=== PATIENT | male | born 1950 ===

== ENCOUNTER 2018-04-08 08:53 | Outpatient (CLI) | payer MEDICARE | END 2018-04-08 08:54 | disposition home or self-care (01) | LOC: C.LAB 08:53 | DX: E78.00 Pure hypercholesterolemia, unspecified (principal); I10 Essential (primary) hypertension; K40.90 Unilateral inguinal hernia, without obstruction or gangrene, not specified as recurrent; M21.612 Bunion of left foot ==

== ENCOUNTER 2018-07-05 08:11 | Outpatient (CLI) | payer MEDICARE | END 2018-07-05 08:12 | disposition home or self-care (01) | LOC: C.LAB 08:11 → C.PAT 08:12 ==

== ENCOUNTER 2018-07-12 05:57 | Day surgery (SDC) | payer MEDICARE ==
[2018-07-05 08:20] VITALS: BMI 23.6
[2018-07-12] MEDS ORDERED: Bupivacaine Liposomal Inj 20 ml INFIL ONE (07:31)
[2018-07-12] MEDS ORDERED: Propofol 10 mg/ml Inj (20 ML) ONE (07:40)
[2018-07-12] MEDS ORDERED: Rocuronium 10 mg/ml (5 ml) ONE (07:40)
[2018-07-12] MEDS ORDERED: Midazolam 2 MG/2 ML VIAL ONE (07:40)
[2018-07-12] MEDS ORDERED: Lidocaine/Epinephrine 1% 1:100000 10 ML IJ ONE (07:42)
[2018-07-12] MEDS ORDERED: Bupivacaine 0.25% 20 ML INJ IJ ONE (07:42)
[2018-07-12] MEDS ORDERED: Sodium Chloride 0.9% 40 ML IV ONE (07:42)
[2018-07-12] MEDS: ceFAZolin 1 gm in NS 2 GM/200 ML BAG IVPB ONE ×2 (08:20→08:34)
[2018-07-12] MEDS ORDERED: ePHEDrine 50 mg/ml Inj ONE (09:24)
[2018-07-12] MEDS ORDERED: Neostigmine 1:1000 (1 mg/ml) Inj ONE (09:27)
[2018-07-12] MEDS ORDERED: Morphine 4 MG/ML VIAL ONE (10:02)
--- NOTE | 2018-07-12 10:28 | PCM.SURG1 ---
Surgeon's Initial Post Op Note - Surgeon's Notes Surgeon: Isabella Macdonald MD Scrap Piler: TONA San Type of Anesthesia: General Endo Pre-Operative Diagnosis: Right Inguinal Hernia. Right Lower abdominal Pain Operative Findings: Right Indirect inguinal Hernia. Right Lipoma of spermatic cord. Right femoral hernia containing fat. Thickening Appendicx with possible Appendicitis Post-Operative Diagnosis: Right Indirect inguinal Hernia. Right Lipoma of spermatic cord. Right femoral hernia containing fat. Thickenned Appendix with possible Appendicitis Operation Performed: Robotic Right Indirect inguinal Hernia repair with mesh. Robotic Excision of Right Lipoma of spermatic cord. Robotic Right femoral hernia with mesh. Robotic Appendectomy. Robotic TAP block B/L placement Specimen/Specimens Removed: Right Lipoma of spermatic cord. Right femoral hernia content fat. Thickened Appendix Estimated Blood Loss: EBL {In ML}: 10 Blood Products Given: N/A Drains Used: No Drains Post-Op Condition: Good Date of Surgery/Procedure: 07/12/18 Time of Surgery/Procedure: 10:37
[2018-07-12] MEDS: HYDROmorphone 0.5 mg/0.5 ml ISec IVP PRN ×5 (11:11→11:42)
[2018-07-12 12:53] VITALS: BP 128/78; PULSE 83; RESP 18; TEMP 97; O2SAT 100
--- NOTE | 2018-07-12 17:40 | OP ---
PROCEDURE DATE: 07/12/2018 PREOPERATIVE DIAGNOSES: 1. Right inguinal hernia. 2. Right lower abdominal pain. POSTOPERATIVE DIAGNOSES: 1. Right indirect inguinal hernia. 2. Right femoral hernia. 3. Right lipoma of the spermatic cord. 4. Thickened appendix as a part of right inguinal canal with possible appendicitis. PROCEDURE DONE: 1. Robotic right inguinal hernia repair with mesh. 2. Robotic right femoral hernia repair with mesh. 3. Robotic excision of the lipoma of the spermatic cord. 4. Robotic appendectomy. 5. Robotic TAP block bilateral placement. SURGEON: Kumar Macdonald MD STOCK REPAIRER: KENA San TYPE OF ANESTHESIA: General endotracheal tube. INTRAOPERATIVE FINDINGS: The patient had right indirect inguinal hernia containing long, thickened appendix and the patient had a possible appendicitis. The patient also had a large lipoma of the right spermatic cord and the patient also had a right femoral hernia. ESTIMATED BLOOD LOSS: Around 10 mL. DRAINS: None. PATHOLOGY: 1. Lipoma of the right spermatic cord was sent for the pathology. 2. Right femoral hernial content was sent for the pathology. 3. Thickened appendix was sent for the pathology. COMPLICATIONS: None. DESCRIPTION OF PROCEDURE: On intraoperative steps, this is a 67-year-old male who was diagnosed with right inguinal hernia with right lower abdominal pain and the patient was consented for the robotic right inguinal hernia repair with the mesh with TAP block. The patient was brought to the OR, placed supine on the operating table. After induction of the anesthesia, the abdomen was prepped and draped in the usual sterile fashion. The Visiport technique was used to enter the peritoneal cavity due to the previous umbilical hernia repair and another 3-mm port was placed in the upper abdomen. Robot was brought in. Camera arm as well as arm 1 and arm 2 were docked and the peritoneum was incised from the midline up to the right ASIS and the dissection was carried down into the inguinal canal and the patient had appendix that was the part of the inguinal canal and appendix appeared to be extremely thickened and edematous as well as long in size and appendix was reduced back into the peritoneal cavity and after that the dissection was carried down medially up to the space of Retzius laterally. The lateral peritoneal reflection was dissected free from the lateral abdominal wall and spermatic cord and vas deferens and inferior dissection was done up to the pelvic brim and during the medial dissection, the patient was found to have another right femoral hernia containing the preperitoneal fat, large amount of fat, and all fat was reduced back into the peritoneal cavity. Proper hemostasis was achieved and after complete reduction of the right femoral hernial content into the peritoneal cavity, the right anatomical mesh was placed and the mesh was covering the right femoral hernial defect as well as the right inguinal hernial defect and after proper mesh placement, the peritoneum was sutured with 0 Vicryl as well as 3-0 PDS suture and after that the appendix was re-examined and half of the appendix was thickened and edematous and now the mesoappendix was resected and the appendicular artery was clipped and divided and the base of the appendix was divided with a AIXA and appendix was taken in EndoCatch bag, taken out through the umbilical port and sent off the table for the pathology. The lipoma of the spermatic cord as well as the femoral hernia content was also sent off for pathology. All the instruments were taken out and now the bilateral TAP block was given. Then, 30:30 mL of the EXPAREL with saline was injected into the transverse abdominis muscle plain area and after proper TAP block, all the instruments were taken out and all the port was taken out under vision. Robot was undocked and the umbilical port site was closed in 2 layers, the fascia with 0 Vicryl interrupted suture, skin with the 4-0 Monocryl and dry sterile dressing was applied. The patient tolerated the procedure well. Count of instrument and gauze were correct. There were no apparent complications. Kumar Macdonald MD
== END 2018-07-12 18:32 | disposition home or self-care (01) ==
LOC: C.SDS 05:57
PROVIDERS: ATTEND Surgery Surgical Critical Care
DX: K40.90 Unilateral inguinal hernia, without obstruction or gangrene, not specified as recurrent (principal); K41.90 Unilateral femoral hernia, without obstruction or gangrene, not specified as recurrent; D17.6 Benign lipomatous neoplasm of spermatic cord; K35.80 Unspecified acute appendicitis; I10 Essential (primary) hypertension; E78.00 Pure hypercholesterolemia, unspecified; Z79.899 Other long term (current) drug therapy
CPT/HCPCS: 44970; 49650; 49659; 55559; 64488; 88302; 88304; C1781; J0690; J1170; J2001; J2250; J2270; J2405; J2704; J2710; J3010; J7120; S2900